=== PATIENT | female | born 1940 | race Two or more races ===

== ENCOUNTER 2022-10-31 21:40 | Emergency (ER) | payer MEDICARE, OTHER ==
[~2022-10-31] VITALS: Ht 157.5 cm; Wt 62.1 kg
[2022-10-31] MEDS ORDERED: ASPI81TA31 PO (22:11)
[2022-10-31] MEDS ORDERED: FLUO20CA36 PO (22:11)
[2022-10-31] MEDS ORDERED: CELE200C PO (22:12)
--- NOTE | 2022-10-31 22:15 | NUR ---
AT BEDSIDE FOR EVAL.
[2022-10-31] MEDS ORDERED: OXYCODONE/APAP 5-325 MG TABLET PO ONE (22:30)
--- NOTE | 2022-10-31 22:30 | NUR ---
PT RECEIVED X RAY OF NOSE AND RT U E.
[2022-10-31] MEDS ORDERED: ONDANSETRON HCL 4 MG TABLET PO ONE (22:45)
[2022-10-31] MEDS ORDERED: HYDROMORPHONE 1 MG/1 ML DISP.SYRIN IM ONE (22:45)
[2022-10-31] MEDS ORDERED: ONDANSETRON ODT 4 MG TAB.RAPDIS ONE (23:07)
[2022-10-31] MEDS ORDERED: OXYCODONE/APAP 5-325 MG TABLET ONE (23:07)
[2022-10-31] MEDS ORDERED: HYDROMORPHONE 1 MG/1 ML DISP.SYRIN ONE (23:08)
[2022-10-31] MEDS ORDERED: HYDR-3980 PO (23:38)
--- NOTE | 2022-11-01 01:00 | NUR ---
PT RECEIVED A LONG ARM SPLINT ON HER RT UE, WITH + C,S , DECREASED MOVEMENT WITH + RADIAL PULSE. MPT TOD WELL. DAUGHTER AT BEDSIDE. PAIN LEVEL 4/10.
--- NOTE | 2022-11-01 01:30 | NUR ---
SPLINT PLACED ON PT'S R U E.
--- NOTE | 2022-11-01 02:00 | NUR ---
BACITRACIN APPLIED TO THE ABRASIONS ON PT'S NOSE.
[2022-11-01] MEDS ORDERED: BACITRACIN ZINC OINT 15 GM TUBE TOP ONE (02:15)
[2022-11-01] MEDS ORDERED: BACITRACIN ZINC OINT 15 GM TUBE ONE (02:16)
[2022-11-01] MEDS ORDERED: HYDROMORPHONE 1 MG/1 ML DISP.SYRIN IM ONE (02:30)
[2022-11-01] MEDS ORDERED: KETOROLAC TROMETHAMINE 15 MG INJ IM ONE (02:30)
--- NOTE | 2022-11-01 02:30 | NUR ---
PT A,AQ AND O X 3, VSS AND R U E PAIN 4.Patient discharged to home in stable condition. Written and verbal after care instructions given. Patient verbalizes understanding of instructions. Stressed follow up or return to ER for worsening s/s. PT AMD OUT WITH STEADY GAIT WITH DAUGHTER.
[2022-11-01 03:52] VITALS: BP 137/75
== END 2022-11-01 02:30 | disposition home or self-care (01) ==
LOC: ER 21:40
DX: S42.201A Unspecified fracture of upper end of right humerus, initial encounter for closed fracture (principal); S02.2XXA Fracture of nasal bones, initial encounter for closed fracture; Z79.82 Long term (current) use of aspirin; Z79.899 Other long term (current) drug therapy; W01.0XXA Fall on same level from slipping, tripping and stumbling without subsequent striking against object, initial encounter; Y93.89 Activity, other specified; Y92.89 Other specified places as the place of occurrence of the external cause; Y99.8 Other external cause status
CPT/HCPCS: 99284; 70160; 73030; 96372 ×2; J1170; A4663; Q0162